=== PATIENT | male | born 1980 | race Asian ===

== ENCOUNTER 2016-07-27 19:02 | Emergency (ER) | payer OTHER ==
[2016-07-27] MEDS ORDERED: CIPR500T4 PO (19:11)
--- NOTE | 2016-07-27 19:19 | ERD ---
ER Documentation Chief Complaint Date/Time DATE: 07/27/16 TIME: 19:18 Chief Complaint Meningitis exposure HPI Meningitis exposure today with the patient brought in by EMS provider. There are called and notified that the patient they brought to the ER had in fact meningitis likely bacterial they are here for prophylactic Cipro. ROS All systems reviewed and are negative except as per history of present illness. Medications Home Meds Active Scripts Ciprofloxacin Hcl* (Ciprofloxacin Hcl*) 500 Mg Tablet, 500 MG PO now for 1 Day, #1 TAB Prov:ALFREDO MCCABE DO 07/27/16 Allergies Allergies: Coded Allergies: No Known Allergy (Unverified , 07/27/16) FmHx Family History: No coronary disease Physical Exam Physical Exam Const: [] Head: Atraumatic Eyes: Normal Conjunctiva ENT: Normal External Ears, Nose and Mouth. Neck: Full range of motion..~ No meningismus. Resp: Clear to auscultation bilaterally Cardio: Regular rate and rhythm, no murmurs Abd: Soft, non tender, non distended. Normal bowel sounds Skin: No petechiae or rashes Back: No midline or flank tenderness Ext: No cyanosis, or edema Neur: Awake and alert Psych: Normal Mood and Affect Results 24 hrs Current Medications Medications (Trade) Dose Ordered Sig/Mirtha Route PRN Reason Start Time Stop Time Status Last Admin Dose Admin Ciprofloxacin (Cipro) 500 mg ONCE ONCE PO 07/27/16 19:30 07/27/16 19:31 07/27/16 19:16 Procedures/MDM cipro given Departure Diagnosis: Primary Impression: Meningitis exposure Condition: Stable Patient Instructions: ALFREDO Lopez DO Jul 27, 2016 19:19
[2016-07-27] MEDS ORDERED: CIPROFLOXACIN 500 MG TAB PO ONE (19:30)
== END 2016-07-27 19:19 | disposition home or self-care (01) ==
LOC: E/R 19:02
DX: Z20.811 Contact with and (suspected) exposure to meningococcus (principal)
CPT/HCPCS: 99283